=== PATIENT | male | born 1945 | race Caucasian/White ===

== ENCOUNTER → 2016-11-01 | Outpatient (CLI) | payer MEDICARE, OTHER ==
--- NOTE | 2016-11-01 16:05 | US ---
EXAMINATION TYPE: US thyroid st tissue head/neck DATE OF EXAM: 11/01/2016 COMPARISON: Thyroid ultrasound September 06, 2013. CLINICAL HISTORY: Multiple Thyroid Nodules E04.2. Follow up exam, off of thyroid meds, labs level nor mal GLAND SIZE: Right Lobe: 5.0 x 2.2 x 2.9 cm Overall Parenchyma: heterogenous Left Lobe: 3.7 x 1.2 x 1.3 cm Overall Parenchyma: homogeneous Isthmus Thickness: 0.2 cm NODULES RIGHT: # of nodules measured on right: 1 1. 2.8 X 2.5 x 2.4 cm hypoechoic solid nodule at the mid pole with well-defined margins. This nodu le is taller than wide and shows intranodular vascularity. Prior size: 2.7 x 2.3 x 2.3 cm LEFT: # of nodules measured on left: 0 ISTHMUS: # of nodules measured in the isthmus: 0 Bilateral neck scanned, no evidence of lymphadenopathy. Thyroid gland remains within normal limits in size with slightly asymmetrically larger right thyroid lobe identified. Right thyroid lobe is heterogeneous in appearance with dominant 2.8 cm heterogeneous hypoechoic solid nodule redemonstrated. No new nodule is seen. Smaller suspected isoechoic nodule on prior study lower pole level is not clearly seen on current exam. IMPRESSION: Stable dominant 2.8 cm right thyroid solid nodule. No new greater than 1 cm solid or cystic nodules a re evident bilaterally.
== END | disposition home or self-care (01) ==
LOC: RADUSWWP 15:30
PROVIDERS: ATTEND Pediatrics Adolescent Medicine
DX: E04.2 Nontoxic multinodular goiter (principal)
CPT/HCPCS: 76536

== ENCOUNTER 2024-08-15 21:26 | Emergency (ER) | payer MEDICARE, OTHER ==
--- NOTE | 2024-08-15 22:14 | ED ---
Psych HPI - General Chief Complaint: Psychiatric Symptoms Stated Complaint: Mental Health Time Seen by Provider: 08/15/24 21:35 Source: patient, police, EMS Mode of arrival: ambulatory - History of Present Illness Initial Comments: This patient is 78-year-old man brought by ambulance to have psychiatric evaluation. The patient's had called 911 because the patient had made suicidal statement and did brandished a gun. The patient states that he and his were having an argument and he admits to saying he would just shoot himself, but states that he just made statement in anger and that he was not truly suicidal. Patient denies previous psychiatric history. Denies alcohol or drug use. MD Complaint: suicidal ideation Onset/Timin -: hour(s) Associated Psychiatric Symptoms: suicidal ideation History of same: No Quality: resolved prior to arrival Improves With: none Worsens With: none - Related Data Home Medications Medication Instructions Recorded Confirmed Atorvastatin [Lipitor] 10 mg PO HS 08/16/24 08/16/24 Dorzolamide 2% [Trusopt 2%] 1 drop BOTH EYES BID 08/16/24 08/16/24 Ergocalciferol [Vitamin D2 (1250 1,250 mcg PO Q30D 08/16/24 08/16/24 Mcg = 85564 Iu)] Gabapentin [Neurontin] 300 mg PO BID 08/16/24 08/16/24 INSULIN LISPRO (For Pump) [humaLOG 0.01 units SQ-PUMP CONTINUOUS 08/16/24 08/16/24 (For Pump)] Latanoprost [Latanoprost 0.005%] 1 drop BOTH EYES HS 08/16/24 08/16/24 Loratadine [Claritin] 10 mg PO DAILY 08/16/24 08/16/24 Multivitamins, Thera [Multivitamin 1 tab PO HS 08/16/24 08/16/24 (formulary)] Olopatadine HCl [Pataday] 1 drop BOTH EYES DAILY PRN 08/16/24 08/16/24 Ubidecarenone [Coenzyme Q-10] 100 mg PO DAILY 08/16/24 08/16/24 atenoloL [Tenormin] 25 mg PO HS 08/16/24 08/16/24 Allergies Allergy/AdvReac Type Severity Reaction Status Date / Time No Known Allergies Allergy Verified 08/16/24 10:52 Review of Systems ROS Statement: Those systems with pertinent positive or pertinent negative responses have been documented in the HPI. ROS Other: All systems not noted in ROS Statement are negative. Constitutional: Denies: fever, chills Respiratory: Denies: cough, dyspnea Cardiovascular: Denies: chest pain, palpitations Gastrointestinal: Denies: abdominal pain, vomiting Musculoskeletal: Denies: back pain Neurological: Denies: headache, weakness Psychiatric: Reports: as per HPI, suicidal thoughts Past Medical History Past Medical History: Diabetes Mellitus, Hyperlipidemia, Hypertension Additional Past Medical History / Comment(s): neuropathy History of Any Multi-Drug Resistant Organisms: None Reported Additional Past Surgical History / Comment(s): left ankle fusion Past Psychological History: No Psychological Hx Reported Smoking Status: Never smoker Past Alcohol Use History: None Reported Past Drug Use History: None Reported General Exam Limitations: no limitations General appearance: alert, in no apparent distress Head exam: Present: atraumatic, normocephalic Eye exam: Present: normal appearance. Absent: scleral icterus, conjunctival i njection ENT exam: Present: normal oropharynx Neck exam: Present: normal inspection Respiratory exam: Present: normal lung sounds bilaterally. Absent: respiratory distress, wheezes, rales, rhonchi, stridor, accessory muscle use Cardiovascular Exam: Present: regular rate, normal rhythm, normal heart sounds. Absent: systolic murmur, diastolic murmur, rubs, gallop GI/Abdominal exam: Present: soft. Absent: distended, tenderness, guarding, rebound, rigid Extremities exam: Present: normal inspection, normal capillary refill. Absent: pedal edema, calf tenderness Back exam: Present: normal inspection. Absent: CVA tenderness (R), CVA tenderness (L) Neurological exam: Present: alert Psychiatric exam: Present: normal affect, normal mood, suicidal ideation. Absent: agitated, anxious, flat affect, manic, homicidal ideation Skin exam: Present: warm, dry, intact, normal color. Absent: rash Course Vital Signs 08/15/24 08/16/24 08/16/24 21:27 01:00 04:29 Temperature 98.1 F Pulse Rate 74 67 63 Respiratory 18 16 16 Rate Blood Pressure 194/89 190/91 139/53 O2 Sat by Pulse 100 99 98 Oximetry 08/16/24 08/16/24 08/16/24 06:59 10:14 14:34 Temperature 98.9 F Pulse Rate 63 71 83 Respiratory 18 18 16 Rate Blood Pressure 156/84 154/74 173/84 O2 Sat by Pulse 99 99 99 Oximetry 08/16/24 08/16/24 18:00 20:24 Temperature 97.8 F 97.9 F Pulse Rate 80 80 Respiratory 18 18 Rate Blood Pressure 141/69 134/83 O2 Sat by Pulse 96 98 Oximetry Medical Decision Making - Medical Decision Making Was pt. sent in by a medical professional or institution (, PA, CASHIER AND SALESPERSON, urgent care, hospital, or [facility]...) When possible be specific @ -[No] Did you speak to anyone other than the patient for history (EMS, parent, family, police, friend...)? What history was obtained from this source @ -[No] Did you review nursing and triage notes (agree or disagree)? Why? @ -[I reviewed and agree with nursing and triage notes] Were old charts reviewed (outside hosp., previous admission, EMS record, old EKG, old radiological studies, urgent care reports/EKG's, [facility] records)? Report findings @ -[No old charts were reviewed] Differential Diagnosis (chest pain, altered mental status, abdominal pain women, abdominal pain men, vaginal bleeding, weakness, fever, dyspnea, syncope, headache, dizziness, GI bleed, back pain, seizure, CVA, palpatations, mental health, musculoskeletal)? @ -[Differential Mental Health Depression, anxiety, bipolar, psychosis, schizophrenia, borderline personality, situational depression, adjustment disorder, behavioral disorder, brain tumor, m alingering, substance abuse, encephalopathy, medication reaction, dementia, hypothyroidism, degenerative neurologic disorder, lupus.... This is not meant to be all-inclusive list EKG interpreted by me (3pts min.). @ -[As above] X-rays interpreted by me (1pt min.). @ -[None done] CT interpreted by me (1pt min.). @ -[None done] U/S interpreted by me (1pt. min.). @ -[None done] What testing was considered but not performed or refused? (CT, X-rays, U/S, labs)? Why? @ -[None] What meds were considered but not given or refused? Why? @ -[None] Did you discuss the management of the patient with other professionals (professionals i.e. , PA, CASHIER AND SALESPERSON, lab, RT, psych nurse, social media marketer, flume maker, te acher, combatant diver officer, counter caser)? Give summary @ -Case discussed with EPS personnel, they staffed with psychiatrist and will have the patient transferred to geriatric psych unit Was smoking cessation discussed for >3mins.? @ -[No] Was critical care preformed (if so, how long)? @ -[No] Were there social determinants of health that impacted care today? How? (Homelessness, low income, unemployed, alcoholism, drug addiction, transportation, low edu. Level, literacy, decrease access to med. care, correction, rehab)? @ -[No] Was there de-escalation of care discussed even if they declined (Discuss DNR or withdrawal of care, Hospice)? DNR status @ -[No] What co-morbidities impacted this encounter? (DM, HTN, Smoking, COPD, CAD, Cancer, CVA, ARF, Chemo, Hep., AIDS, mental health diagnosis, sleep apnea, morbid obesity)? @ -[None] Was patient admitted / discharged? Hospital course, mention meds given and route, prescriptions, significant lab abnormalities, going to OR and other pertinent info. @ -[The patient pending transfer to the geriatric psych unit at time of shift change Undiagnosed new problem with uncertain prognosis? @ -[No] Drug Therapy requiring intensive monitoring for toxicity (Heparin, Nitro, Insulin, Cardizem)? @ -[No] Were any procedures done? @ -[No] Diagnosis/symptom? @ -[Acute mood disorder Suicidal ideation Acute, or Chronic, or Acute on Chronic? @ -[Acute Uncomplicated (without systemic symptoms) or Complicated (systemic symptoms)? @ -[Uncomplicated Side effects of treatment? @ -[No] Exacerbation, Progression, or Severe Exacerbation? @ -[No] Poses a threat to life or bodily function? How? (Chest pain, USA, PR, pneumonia, PE, COPD, DKA, ARF, appy, cholecystitis, CVA, Diverticulitis, Homicidal, Suicidal, threat to staff... and all critical care pts) @ -[Yes there is high risk of suicide attempt/completion associated with this case - Lab Data Result diagrams: 08/16/24 00:12 08/16/24 00:12 Lab Results 08/16/24 08/16/24 08/16/24 Range/Units 00:06 00:12 00:12 WBC 8.05 (4.50-10.00) 10*3/uL RBC 4.66 (4.40-5.60) 10*6/uL Hgb 14.5 (13.0-17.0) g/dL Hct 40.3 (39.6-50.0) % MCV 86.5 (80.0-97.0) fL MCH 31.1 (27.0-32.0) pg MCHC 36.0 (32.0-37.0) g/dL Plt Count 273 (140-440) 10*3/uL MPV 9.9 (9.5-12.2) fL Immature Gran % (Auto) 0.2 % Neutrophils % 76.6 % Lymphocytes % 12.4 % Monocytes % 8.3 % Eosinophils % 1.6 % Basophils % 0.9 % Immature Gran # 0.02 (0.00-0.04) 10*3/uL Neutrophils # 6.16 (1.80-7.70) 10*3/uL Lymphocytes # 1.00 (0.90-5.00) 10*3/uL Monocytes # 0.67 (0.20-1.00) 10*3/uL Eosinophils # 0.13 (0.04-0.35) 10*3/uL Basophils # 0.07 (0.00-0.10) 10*3/uL Sodium (137-145) mmol/L Potassium (3.5-5.1) mmol/L Chloride (98-107) mmol/L Carbon Dioxide (22-30) mmol/L Anion Gap mmol/L BUN (9-20) mg/dL Creatinine (0.66-1.25) mg/dL Est GFR (CKD-EPI)AfAm (>60 ml/min/1.73 sqM) Est GFR (CKD-EPI)NonAf (>60 ml/min/1.73 sqM) Glucose (74-99) mg/dL POC Glucose (mg/dL) (70-110) mg/dL POC Glu Jig Worker ID Calcium (8.4-10.2) mg/dL Urine Opiates Screen Not Detected (NotDetected) Ur Oxycodone Screen Not Detected (NotDetected) Urine Methadone Screen Not Detected (NotDetected) Ur Barbiturates Screen Not Detected (NotDetected) U Tricyclic Antidepress Not Detected (NotDetected) Ur Phencyclidine Scrn Not Detected (NotDetected) Ur Amphetamines Screen Not Detected (NotDetected) U Methamphetamines Scrn Not Detected (NotDetected) U Benzodiazepines Scrn Not Detected (NotDetected) Urine Cocaine Screen Not Detected (NotDetected) U Marijuana (THC) Screen Not Detected (NotDetected) SARS-CoV-2 (PCR) Not Detected (Not Detectd) 08/16/24 08/16/24 08/16/24 Range/Units 00:12 07:36 12:14 WBC (4.50-10.00) 10*3/uL RBC (4.40-5.60) 10*6/uL Hgb (13.0-17.0) g/dL Hct (39.6-50.0) % MCV (80.0-97.0) fL MCH (27.0-32.0) pg MCHC (32.0-37.0) g/dL Plt Count (140-440) 10*3/uL MPV (9.5-12.2) fL Immature Gran % (Auto) % Neutrophils % % Lymphocytes % % Monocytes % % Eosinophils % % Basophils % % Immature Gran # (0.00-0.04) 10*3/uL Neutrophils # (1.80-7.70) 10*3/uL Lymphocytes # (0.90-5.00) 10*3/uL Monocytes # (0.20-1.00) 10*3/uL Eosinophils # (0.04-0.35) 10*3/uL Basophils # (0.00-0.10) 10*3/uL Sodium 134 L (137-145) mmol/L Potassium 4.2 (3.5-5.1) mmol/L Chloride 100 (98-107) mmol/L Carbon Dioxide 26 (22-30) mmol/L Anion Gap 8 mmol/L BUN 23 H (9-20) mg/dL Creatinine 0.99 (0.66-1.25) mg/dL Est GFR (CKD-EPI)AfAm 84 (>60 ml/min/1.73 sqM) Est GFR (CKD-EPI)NonAf 73 (>60 ml/min/1.73 sqM) Glucose 124 H (74-99) mg/dL POC Glucose (mg/dL) 134 H 262 H (70-110) mg/dL POC Glu Jig Worker ID Ariadna Ray Calcium 9.4 (8.4-10.2) mg/dL Urine Opiates Screen (NotDetected) Ur Oxycodone Screen (NotDetected) Urine Methadone Screen (NotDetected) Ur Barbiturates Screen (NotDetected) U Tricyclic Antidepress (NotDetected) Ur Phencyclidine Scrn (NotDetected) Ur Amphetamines Screen (NotDetected) U Methamphetamines Scrn (NotDetected) U Benzodiazepines Scrn (NotDetected) Urine Cocaine Screen (NotDetected) U Marijuana (THC) Screen (NotDetected) SARS-CoV-2 (PCR) (Not Detectd) 08/16/24 08/16/24 Range/Units 14:38 17:34 WBC (4.50-10.00) 10*3/uL RBC (4.40-5.60) 10*6/uL Hgb (13.0-17.0) g/dL Hct (39.6-50.0) % MCV (80.0-97.0) fL MCH (27.0-32.0) pg MCHC (32.0-37.0) g/dL Plt Count (140-440) 10*3/uL MPV (9.5-12.2) fL Immature Gran % (Auto) % Neutrophils % % Lymphocytes % % Monocytes % % Eosinophils % % Basophils % % Immature Gran # (0.00-0.04) 10*3/uL Neutrophils # (1.80-7.70) 10*3/uL Lymphocytes # (0.90-5.00) 10*3/uL Monocytes # (0.20-1.00) 10*3/uL Eosinophils # (0.04-0.35) 10*3/uL Basophils # (0.00-0.10) 10*3/uL Sodium (137-145) mmol/L Potassium (3.5-5.1) mmol/L Chloride (98-107) mmol/L Carbon Dioxide (22-30) mmol/L Anion Gap mmol/L BUN (9-20) mg/dL Creatinine (0.66-1.25) mg/dL Est GFR (CKD-EPI)AfAm (>60 ml/min/1.73 sqM) Est GFR (CKD-EPI)NonAf (>60 ml/min/1.73 sqM) Glucose (74-99) mg/dL POC Glucose (mg/dL) 264 H 88 (70-110) mg/dL POC Glu Jig Worker ID Brittany Noguera Calcium (8.4-10.2) mg/dL Urine Opiates Screen (NotDetected) Ur Oxycodone Screen (NotDetected) Urine Methadone Screen (NotDetected) Ur Barbiturates Screen (NotDetected) U Tricyclic Antidepress (NotDetected) Ur Phencyclidine Scrn (NotDetected) Ur Amphetamines Screen (NotDetected) U Methamphetamines Scrn (NotDetected) U Benzodiazepines Scrn (NotDetected) Urine Cocaine Screen (NotDetected) U Marijuana (THC) Screen (NotDetected) SARS-CoV-2 (PCR) (Not Detectd) Disposition Clinical Impression: Suicidal ideation, Mood disorder Disposition: TRANSFER TO PSYCH HOSP/UNIT Condition: Fair Is patient prescribed a controlled substance at d/c from ED?: No Referrals: Stan Benavides MD [Primary Care Provider] - 1-2 days
[2024-08-16 00:35] LABS: Basophils # (A) 0.07 10*3/uL (0.00-0.10); Basophils % (A) 0.9 %; Eosinophils # (A) 0.13 10*3/uL (0.04-0.35); Eosinophils % (A) 1.6 %; HCT 40.3 % (39.6-50.0); HGB 14.5 g/dL (13.0-17.0); Lymphocytes % (A) 12.4 %; MCH 31.1 pg (27.0-32.0); MCV 86.5 fL (80.0-97.0); Mean Platelet Volume 9.9 fL (9.5-12.2); Monocytes # (A) 0.67 10*3/uL (0.20-1.00); Monocytes % (A) 8.3 %; Neutrophils # (A) 6.16 10*3/uL (1.80-7.70); Neutrophils % (A) 76.6 %; Platelet Count 273 10*3/uL (140-440); RBC 4.66 10*6/uL (4.40-5.60); RDW 13.2 % (11.5-14.5); WBC 8.05 10*3/uL (4.50-10.00)
[2024-08-16 00:53] LABS: African American GFR (CKD) 84 (>60 ml/min/1.73 sqM); Anion Gap 8 mmol/L; Blood Urea Nitrogen 23 mg/dL (9-20); Calcium 9.4 mg/dL (8.4-10.2); Carbon Dioxide 26 mmol/L (22-30); Chloride 100 mmol/L (98-107); Glucose 124 mg/dL (74-99); Non-African American GFR(CKD) 73 (>60 ml/min/1.73 sqM); Potassium 4.2 mmol/L (3.5-5.1); Sodium 134 mmol/L (137-145)
[2024-08-16 00:58] LABS: Amphetamine Screen,Urine Not Detected (NotDetected); Barbiturate Screen,Urine Not Detected (NotDetected); Benzodiazepines Screen,Urine Not Detected (NotDetected); Cocaine Screen,Urine Not Detected (NotDetected); Methadone Screen, Urine Not Detected (NotDetected); Opiate Screen,Urine Not Detected (NotDetected); Oxycodone Screen, Urine Not Detected (NotDetected); Phencyclidine Screen,Urine Not Detected (NotDetected); Tricyclic Antidepressant,Urine Not Detected (NotDetected); Urn Cannabinoid Scrn Not Detected (NotDetected)
[2024-08-16 07:38] LABS: Glucose,Whole Blood 134 mg/dL (70-110)
[2024-08-16 12:15] LABS: Glucose,Whole Blood 262 mg/dL (70-110)
[2024-08-16 14:40] LABS: Glucose,Whole Blood 264 mg/dL (70-110)
[2024-08-16 17:37] LABS: Glucose,Whole Blood 88 mg/dL (70-110)
[2024-08-16 18:57] VITALS: PULSE 80; RESP 18
[2024-08-16 20:27] VITALS: BP 134/83; TEMP 97.9
== END 2024-08-16 20:24 ==
LOC: EC 21:26
DX: F39 Unspecified mood [affective] disorder (principal); R45.851 Suicidal ideations; Z11.52 Encounter for screening for COVID-19
CPT/HCPCS: 36415; 80048; 80306; 82075; 85025; 87635; 99285